=== PATIENT | male | born 1955 | race Asian ===

== ENCOUNTER 2024-08-17 12:51 | Emergency (ER) | payer OTHER, MEDICAID ==
[~2024-08-17] VITALS: Ht 175.3 cm; Wt 62.0 kg
[2024-08-17 13:01] VITALS: TEMP 98.3; O2SAT 99
[2024-08-17] MEDS: BACITRACIN ZINC OINT UDPKT TOP ONE (13:50)
[2024-08-17] MEDS: TETANUS, DIPHTHERIA, PERTUSSIS VAC/PF 0.5ML (>10YR OLD) IM ONE (13:51)
[2024-08-17] MEDS: LIDOCAINE HCL/PF 1% 10 MG/ML 5ML VIAL INFIL ONE (13:51)
[2024-08-17] MEDS: HYDROCODONE/ACETAMINOPHEN 5/325MG TABLET PO ONE (13:51)
[2024-08-17] MEDS: CEFAZOLIN 1000MG PREMIX 50 ML IV ONE (14:20)
[2024-08-17] MEDS ORDERED: BO1 TP (16:22)
[2024-08-17] MEDS ORDERED: HYDR-4001 MT (16:22)
[2024-08-17] MEDS ORDERED: CEPH500C2 MT (16:22)
[2024-08-17] MEDS ORDERED: IBUP-2029 MT (16:22)
[2024-08-17 16:34] VITALS: BP 119/82; PULSE 80; RESP 15; O2SAT 99
== END 2024-08-17 16:41 | disposition home or self-care (01) ==
LOC: ER 13:12
DX: S61.412A Laceration without foreign body of left hand, initial encounter (principal); Z79.899 Other long term (current) drug therapy; W27.0XXA Contact with workbench tool, initial encounter; Y93.89 Activity, other specified; Y92.89 Other specified places as the place of occurrence of the external cause; Y99.8 Other external cause status
CPT/HCPCS: 99284; 96365; 73130; 90715; 12002; 90471; J0690; J3490